=== PATIENT | female | born 1965 | race Caucasian/White ===

== ENCOUNTER 2016-11-01 05:43 | Day surgery (SDC) | payer OTHER ==
[~2016-11-01] VITALS: Ht 167.6 cm; Wt 63.6 kg
[2016-11-01] VITALS (10 sets, daily range): BP systolic 98–111; BP diastolic 61–72; PULSE 62–70; RESP 10–19; O2SAT 96–100
[~2016-11-01 05:43] MED LIST: ACYC400T2 PO
[2016-11-01] MEDS ORDERED: Propofol 10,000 mCg/mL 20 mL Inj ONE (05:44)
[2016-11-01] MEDS ORDERED: Ondansetron 2 mg/mL 2 mL Inj ONE (05:44)
[2016-11-01] MEDS ORDERED: fentaNYL-PF 50 mCg/mL 2 mL Inj ONE (05:44)
[2016-11-01] MEDS: Lactated Ringer's 1,000 ML IV SCH ×2 (05:47→07:44)
[2016-11-01] MEDS ORDERED: Bupivacaine Liposome 1.3% 20 mL Inj INFILTRATE ONE (06:00)
--- NOTE | 2016-11-01 07:14 | PCM.HPANE ---
Patient Data Surgeon Admitting Provider: Attending Provider:Isiah Galvan MD Primary Care Physician:Manohar Soler MD Other Provider:Jennifer Amezcua Anesthesia Reason for Visit Internal Hemorrhoids Ht/WT & BMI Height (Feet): 5 Height (Inches): 6.00 Weight (Kilograms): 63.6 Body Mass Index 22.00 Allergies Coded Allergies: Penicillins (Verified Allergy, Intermediate, HIVES, 08/09/13) Sulfa (Sulfonamide Antibiotics) (Verified Allergy, Unknown, HIVES, 08/09/13 ) Past Anesthesia History Anesthesia History: Denies:: Abnormal Airway, Anesthesia Reactions, Difficult Intubation, Fam Anesthesia Reaction, Fam Malignant Hypertherm, Malignant Hyperthermia Diabetes History Hx Diabetes?: No MRSA MRSA: No Medications Home Meds Incl Beta Gayatri: No Reported Medications Acyclovir 400 Mg [id number] Mg PO 5xdaily PRN outbreak Ref 0 for 5 day course 10/27/16 History History of ENT Problems?: No HEENT History: Denies:: Abnormal Airway Difficult Intubation Dysphagia Hearing Problem Denture Type: None Teeth Condition: Within Normal Limits Hx of Heart Problems?: No Cardiovascular History: Denies:: AICD Atrial Fibrillation Chest Pain Hypertension Pacemaker Valvular Heart Disease Hx of Respiratory Problem?: No Respiratory History: Denies:: Asthma COPD Cough Hemoptysis Pneumonia Tuberculosis Hx Neurologic Problems?: No Neurological History: Denies:: CVA Dementia Hx of GI Problems?: No Gastrointestinal History: Denies:: Cirrhosis Diverticulitis Gall Bladder Disease Gastroesphageal Reflux Gastrointestinal Bleeding Heartburn Hepatitis Hiatal Hernia Liver Disease Rectal Bleeding Hx of Problems?: No Genitourinary History: Denies:: HX of Hemodialysis Kidney Stones Urinary Tract Infection Female Hx: Denies:: Currently Skin History: Denies:: History Skin Disorders? Hx Musculoskeletal Problems?: No Musculoskeletal History: Denies:: Joint Replacement Psycho Social History: Denies:: Anxiety Hx Depression Hx Surgeries?: Yes (APPY (AGE 3), LEFT KNEE) Hx Any Other Health Problems?: Yes Other History: Denies:: Thyroid Disease Hx Diabetes: No Hx Alcohol Use: No Smoking Status: Former Smoker Stop/Bang Treated for Sleep Apnea?: No Do You Have a CPAP Machine?: No S-Snoring: Do You Snore Loudly: No T-Tired: feel tired, fatigued: No O-Obsered: Observed not breath: No P-Blood Pressure: treated: No B- Body Mass Index > 35 kg/m2: No A- Age over 50: No N- Neck Large Circumference: No G- Gender Male: No SALVADOR Total Score: 0 Risk Assessment Category Category 1A: Patient has history of documented sleep apnea, and HAS NOT received any narcotic, sedative or anesthesia administration during this stay. Category 1B: Patient has history of documented sleep apnea, and HAS received any narcotic , sedative or anesthesia administration during this stay Category 2: Patient has SUSPECTED Obstructive Sleep Apnea, and HAS received any narcotic , sedative or anesthesia administration during this stay. Category 3: Patient has SUSPECTED Obstructive Sleep Apnea and HAS NOT received narcotic, sedative or anesthesia administration during this stay. Category 4: Outpatient in Procedural Areas with known sleep apnea or who screen positive for High Risk via the STOP/BANG questionnaire. Exam Exam Vital Signs Vital Signs Date Time Temp Pulse Resp B/P Pulse Ox O2 Delivery O2 Flow Rate FiO2 11/01/16 06:05 36.4 67 16 105/63 100 Room Air General Appearance: Alert, Oriented X3, Cooperative HEENT/AIRWAY: MP 2 Lungs: Clear to Auscultation, Normal Air Movement Heart: Exam Unremarkable Meds/Labs/Diagnostics Admission Meds Current Medications Lactated Ringer's (Lr) 1,000 ml @ 120 mls/hr [id number] IV Last administered on t 05:47; Start 11/01/16 at 05:00; Stop 11/01/16 at 13:19 Plan Impression Patient chart reviewed, patient interviewed and anesthestic plan with risks, benefits, and alternatives discussed, and informed consent obtained. ASA Physical Status: ASA2 Mod Systemic Disease Anesthetic Plan: GA Bene/Risks/Altern/Consents: Yes HP Complete Prior to Induction: Yes Ian Ray MD Nov 01, 2016 07:14
[2016-11-01] MEDS ORDERED: MetoCLOpramide 5 mg/mL 2 mL Inj IVPUSH PRN (07:40)
[2016-11-01] MEDS ORDERED: HYDROmorphone 1 mg/mL Inj IVPUSH PRN (07:40)
[2016-11-01] MEDS ORDERED: fentaNYL-PF 50 mCg/mL 2 mL Inj IVPUSH PRN (07:40)
[2016-11-01] MEDS ORDERED: Dexamethasone 4 mg/mL Inj IVPUSH PRN (07:40)
[2016-11-01] MEDS ORDERED: Lactated Ringer's 1,000 ML IV SCH (07:40)
[2016-11-01] MEDS ORDERED: Lactated Ringer's 500 ML IV PRN (07:40)
[2016-11-01] MEDS ORDERED: EPHEDrine Sulfate 50 mg/mL Inj IVPUSH PRN (07:40)
[2016-11-01] MEDS ORDERED: Ondansetron 2 mg/mL 2 mL Inj IVPUSH PRN (07:40)
[2016-11-01] MEDS ORDERED: Phenylephrine 10,000 mCg/mL Inj IVPUSH PRN (07:40)
--- NOTE | 2016-11-01 08:01 | PCM.DISURG ---
Surgical Discharge Instruction Date of Service Nov 01, 2016 Dates of Hospitalization Date of Hospital Admission Providers Admitting Physician: Primary Care Physician: Manohar Soler MD Attending Physician: Isiah Galvan MD Discharge Diagnosis Discharge Diagnosis Grade 3 internal hemorrhoid Diet Discharge Diet: No restrictions Activity Discharge Activity-General: No restrictions, Activity as pain allows Dressing and Incisional Care Hygiene: May shower Follow Up Plan Follow Up Plan In the general surgery [place] postoperative clinic in 2-3 weeks Call your provider for: Other (inability to urinate) Isiah Galvan MD Nov 01, 2016 08:01
--- NOTE | 2016-11-01 08:06 | PCM.SURGOP ---
Surgical Operative Report Date of Service: Nov 01, 2016 Pre Operative Diagnosis Grade 3 internal hemorrhoid Post Operative Diagnosis Same Procedure: Hemorrhoidectomy, single column Surgeon and Hair Assistant: Surgeon: Isiah Galvan MD Assistants: Floyd Lema PA-C Indication for Procedure 51-year-old woman who has had a prolapsing internal hemorrhoid for several years , which causes mild discomfort. It is not amenable to rubberbanding because it is too close to the anal verge, and too large. She does have a family history of anal squamous cell carcinoma in her sister. After discussion of risks and benefits, she agreed to proceed with hemorrhoidectomy. Findings: There was a 1.5 cm firm prolapsing hemorrhoid in the left posterior position. In the right posterior position, there was a hypertrophied anal papilla, but no other masses. Procedure Details After smooth induction of general anesthesia with an LMA, she was placed in the high lithotomy position, and was prepped and draped in wide sterile fashion. A procedural pause was performed according to the SCOAP checklist, and all were found to be in agreement. Digital rectal exam was performed. The firm internal hemorrhoid was palpated in the left posterior position. No other masses were appreciated. The hemorrhoid was manually prolapsed. Using a bivalve anal retractor, the remainder of the anal canal was visualized and inspected. The rectum was normal. In the right posterior position, there was a hypertrophied anal papilla , but no other masses were appreciated. A 2-0 chromic suture was placed as a stay stitch above the hemorrhoid at the level of the dentate line. The hemorrhoid was excised using electrocautery down to the internal anal sphincter muscle. The hemorrhoid was sent for permanent pathology. The anoderm was closed using a running, locking 2-0 chromic suture. There was no stenosis of the anal canal at the completion of closure. An anal block was performed using 20 mL of liposomal bupivacaine. At the end of the case all needle and sponge counts were correct 2. The patient was awakened from anesthesia without difficulty, and taken to the recovery room in satisfactory condition, having tolerated the procedure well. Complications There were no periprocedural complications identified. Surgical Specimen Removed: Yes Specimen sent to Pathology: Yes Surgical Specimen description: Hemorrhoid Anesthetic Plan: GA Grafts, Implants: None Output, Estimated Blood Loss: 10 Blood Administration during sultana: No Drains: None Catheters: None copies to: Manohar Soler MD, Joshua D MD Nov 01, 2016 08:06
--- NOTE | 2016-11-01 08:11 | PCM.ANEP1 ---
Post Anesthesia Phase 1 PACU Phase 1 Assessment Date of Service: Nov 01, 2016 Vital Signs Vital Signs Date Time Temp Pulse Resp B/P Pulse Ox O2 Delivery O2 Flow Rate FiO2 11/01/16 06:05 36.4 67 16 105/63 100 Room Air Anesthetic Administered: GA Level of Alertness: Sleeping, hard to arouse WANG's with Equal Strength: Yes Pain: No Nausea or Vomiting: No Cardiovascular Function and Hy: Yes Airway Device: Oralpharangeal Airway Oxygen Delivery: Simple Mask Lungs: Clear to Auscultation, Normal Air Movement Dermatome Level: Full Sensation Complications: No Ian Ray MD Nov 01, 2016 08:11
--- NOTE | 2016-11-02 11:46 | PATH ---
SURGICAL PATHOLOGY Attending Physician:Shena Gonzalez CASE STATUS: Signed Out PATIENT NAME: MYLES CROSS PID: [id number] : 1965 DATE COLLECTED:11/01/2016 16:18 SPECIMEN: Hemorrhoids CLINICAL HISTORY: 1. INTERNAL HEMORRHOID FINAL DIAGNOSIS: Hemorrhoids, Hemorrhoidectomy: Portion of hemorrhoid x1 with a small squamous papilloma (0.3 cm); negative for atypia and malignancy. ICD10: K64 GROSS DESCRIPTION: The specimen is received in one formalin filled container labeled with the patient's name, sublabeled "internal hemorrhoid" and consists of a 1.5 x 1.0 x 1.5 CM dome-shaped portion of tissue. Centrally located on the tissue surface is a 0.3 CM in diameter raised and rough area. The specimen is inked blue. 2 associate sales representative sections are submitted in one cassette. 11/01/2016 [facility] ICD-9 CODES: CPT CODES: 1: 56294 Electronically Signed Out Verónica Guillen MD [facility] Pathology [facility] [address], [place] [address] Technical component performed at [facility], [address] [place] [address] Ave[address], [place], [address]
== END 2016-11-01 23:59 | disposition home or self-care (01) ==
LOC: SAS 05:43
PROVIDERS: ATTEND Student in an Organized Health Care Education/Training Program
DX: K64.2 Third degree hemorrhoids (principal); Z80.0 Family history of malignant neoplasm of digestive organs; Z85.828 Personal history of other malignant neoplasm of skin; Z87.891 Personal history of nicotine dependence
CPT/HCPCS: 46945; J7120